=== PATIENT | female | born 1980 | race Caucasian/White ===

== ENCOUNTER 2024-04-15 20:00 | Emergency (ER) | payer OTHER ==
[~2024-04-15] VITALS: Ht 175.3 cm; Wt 67.6 kg
[~2024-04-15 20:00] MED LIST: PERCOCET 7.5-31 EACH PO; PRENATABS RX T1 EACH PO; PROTONIX40 MG PO; ZOFRAN ODT4 MG PO
[2024-04-15] MEDS ORDERED: SODIUM CHLORIDE 0.9% 500 ML IV PRN (20:15)
[2024-04-15] MEDS ORDERED: TRANEXAMIC ACID IN NACL,ISO-OS 1,000 MG/100 ML PIGGYBACK IV ONE (20:15)
[2024-04-15 20:40] LABS: BASOPHILS 0.3 % (0-2); EOSINOPHILS 2.2 % (0-6); HEMATOCRIT 28.4 % (35.0-50.0); HEMOGLOBIN 9.1 g/dL (12.0-18.0); LYMPHOCYTES 16.5 % (24-44); MCH 20.8 (27-36); MCHC 32.2 g/dl (30-36); MCV 64.6 fl (81-99); MONOCYTES 4.9 % (0-12); NEUTROPHILS 76.1 % (39-80); PLATELET COUNT 264 K/uL (140-440); RBC 4.39 M/ul (4.3-5.7); RDW 18.4 (10.5-15.0)
[2024-04-15] MEDS ORDERED: PROGESTERONE200 MG PO (20:47)
[2024-04-15 20:50] LABS: INR 1.01 (0.80-1.30); PROTIME 13.2 Sec (11.2-14.2)
[2024-04-15 20:56] LABS: ALBUMIN 3.6 g/dL (3.4-5.0); ALBUMIN/GLOBULIN RATIO 0.95 (1.1-2.4); ANION GAP 14.3 (7-21); BILIRUBIN, TOTAL 0.3 ng/dL (0.2-1.0); BUN/CREATININE RATIO 15.78 (6.0-28.6); CALCIUM 8.7 mg/dL (8.5-10.1); CREATININE, SERUM 0.95 mg/dL (0.55-1.02); POTASSIUM 3.3 mmol/L (3.5-5.1); PROTEIN, TOTAL 7.4 g/dL (6.4-8.2)
[2024-04-15 21:16] LABS: ABO A; ANTIBODY SCREEN NEGATIVE; RH POSITIVE
[2024-04-15] MEDS ORDERED: ESTROGENS ESTERIFIED PO ONE (21:30)
[2024-04-15] MEDS ORDERED: estradioL 1 MG TAB PO ONE (21:30)
[2024-04-15 22:12] LABS: BASOPHILS 0.6 % (0-2); EOSINOPHILS 1.4 % (0-6); HEMATOCRIT 24.8 % (35.0-50.0); HEMOGLOBIN 7.7 g/dL (12.0-18.0); LYMPHOCYTES 7.9 % (24-44); MCH 20.2 (27-36); MCV 65.1 fl (81-99); MONOCYTES 4.2 % (0-12); NEUTROPHILS 85.9 % (39-80); PLATELET COUNT 235 K/uL (140-440); RBC 3.81 M/ul (4.3-5.7); RDW 18.1 (10.5-15.0)
[2024-04-15] MEDS ORDERED: TRANEXAMIC ACI650 MG PO (22:28)
[2024-04-15] MEDS ORDERED: TRANEXAMIC ACID 1,000 MG/10 ML AMP PO ONE (22:30)
[2024-04-15] MEDS ORDERED: VITAMIN C500 M1 PO (22:33)
[2024-04-15] MEDS ORDERED: FERROUS SULFAT325 MG PO (22:33)
[2024-04-15 22:50] VITALS: BP 113/63
--- NOTE | 2024-04-16 22:48 | EKG ---
[facility] [address] [facility] [place] [address] Signed Normal sinus rhythm Normal ECG No previous ECGs available Confirmed by Annamarie Canchola MD () on 04/16/2024 10:48:41 PM Electronically Signed By: ANNAMARIE CANCHOLA MD 04/16/24 2248 PATIENT NAME: GARCIA SALDIVAR LEANDRO Electrocardiogram DATE OF : 80 PHYSICIAN: ANNAMARIE CANCHOLA MD REPORT #: [id number] REPORT IS CONFIDENTIAL AND NOT TO BE RELEASED WITHOUT AUTHORIZATION
== END 2024-04-15 22:50 | disposition home or self-care (01) ==
LOC: ED 20:00
PROVIDERS: Family Medicine
DX: N92.4 Excessive bleeding in the premenopausal period (principal); Z79.890 Hormone replacement therapy
CPT/HCPCS: 36415; 80053; 85025; 85060; 85610; 86850; 86900; 86901; 93005; 93010; 96365; 99284-25; J7040

== ENCOUNTER 2025-01-26 07:28 | Day surgery (SDC) | payer OTHER ==
[~2025-01-26] VITALS: Ht 175.3 cm; Wt 65.0 kg
[~2025-01-26 07:28] MED LIST changes: +FERROUS SULFAT325 MG PO; +IBLOOD GLUCOSE TEST STRIP 1 EA TEST VI PRN; +LACTATED RINGER'S 1,000 ML IV SCH; +LIDOCAINE HCL 1% 5 ML SDV INJ ONE; +PROGESTERONE200 MG PO; +TRANEXAMIC ACI650 MG PO; +VITAMIN C500 M1 PO
[2025-01-26 07:43] VITALS: BP 123/68
[2025-01-26] MEDS ORDERED: LIDOCAINE HCL 2% 5 ML SDV ONE (08:04)
[2025-01-26] MEDS ORDERED: KETOROLAC TROMETHAMINE 30 MG/ML VIAL ONE (08:07)
[2025-01-26] MEDS ORDERED: MIDAZOLAM HCL 2 MG/2 ML VIAL ONE (08:23)
[2025-01-26] MEDS ORDERED: fentaNYL citrate 100 MCG/2 ML VIAL ONE (08:23)
--- NOTE | 2025-01-26 09:43 | NUR ---
01/26/25 0943 Aylin Pelayo 0929- PT ARRIVES TO PACU. WAKES TO VOICE. DENIES PAIN OR NAUSEA AT THIS TIME. 0941- PT AWAKE OFF AND ON, CONTINUES TO DENIE PAIN.
[2025-01-26 09:50] VITALS: BP 102/58
--- NOTE | 2025-01-26 11:54 | OR ---
[address] [address] Signed DATE OF OPERATION: 01/26/2025 SURGEON: Lyn Mays MD PREOPERATIVE DIAGNOSIS: Menometrorrhagia. POSTOPERATIVE DIAGNOSIS: Menometrorrhagia. PROCEDURES: Diagnostic hysteroscopy, dilatation and curettage, NovaSure endometrial ablation. FINDINGS: Eight week size anteverted uterus, normal cervical canal, normal uterine cavity, normal tubal ostia. ANESTHESIA: MAC plus local. MANAGER RETAIL: None. IV FLUIDS: 600 mL crystalloid. ESTIMATED BLOOD LOSS: 5 mL. URINE OUTPUT: 30 mL clear urine . DRAINS: None. SPECIMENS: Endometrial curettings. COUNTS: Correct x2. Electronically Signed By: YLN MAYS MD 01/26/25 1154 PATIENT NAME: GARCIA SALDIVAR LEANDRO OPERATIVE REPORT DATE OF : 80 REPORT #: [id number] PHYSICIAN: LYN MAYS MD PCP: PRICILLA WORKMAN PA-C REPORT IS CONFIDENTIAL AND NOT TO BE RELEASED WITHOUT AUTHORIZATION [address] [address] Signed COMPLICATIONS: None apparent. TECHNIQUE IN DETAIL: With informed consent and negative hCG patient was taken to the operating room where she was given IV sedation. Her lower extremities were placed in mid lithotomy position using Yellofin stirrups. She underwent a brief exam under anesthesia and was then prepped and draped in sterile fashion. Time-out was then performed per protocol. We also placed her lower extremities in SCD pneumatic compression devices for DVT prophylaxis. A speculum was placed and the cervix was visualized. Paracervical block using 0.25% Marcaine with epinephrine was injected. 10 mL was injected circumferentially around the cervix. A single-tooth tenaculum was then placed on the anterior lip of the cervix. The uterus was sounded and found to be 8.5 cm. The cervical canal was then measured and found to be approximately 3.5 cm. The cervical canal was then gently dilated with ease to allow introduction of the hysteroscope. The hysteroscope was then inserted and there was direct visualization of the cervical canal and uterine cavity with the above-mentioned findings. Gentle curettage of the uterine cavity was then performed to obtain tissue for histopathologic evaluation. The NovaSure device was then removed from its packaging. The device was assessed and found to be in good working order. It was then inserted into the uterine cavity with ease and deployed. The length and width measurements were inserted into the computer. Cavity assessment was then performed. Cavity assessment was passed and ablation was begun. Total ablation time was 2 minutes. The device was then removed with ease. The tenaculum was removed from the anterior lip of the cervix and hemostasis was noted at both puncture sites. I and O catheterization of the patient's bladder was performed for the above mentioned about. DISPOSITION: The patient was taken to the recovery room in stable condition. MD MARU Ochoa/DELGADO /[id number] Electronically Signed By: LYN MAYS MD 01/26/25 1154 PATIENT NAME: GARCIA SALDIVAR OPERATIVE REPORT DATE OF : 80 REPORT #: [id number] PHYSICIAN: LYN MAYS MD PCP: PRICILLA WORKMAN PA-C REPORT IS CONFIDENTIAL AND NOT TO BE RELEASED WITHOUT AUTHORIZATION [address] [place] [address] Signed Copies: ~ Electronically Signed By: LYN MAYS MD 01/26/25 1154 PATIENT NAME: GARCIA SALDIVAR OPERATIVE REPORT DATE OF : 80 REPORT #: [id number] PHYSICIAN: LYN MAYS MD PCP: PRICILLA WORKMAN PA-C REPORT IS CONFIDENTIAL AND NOT TO BE RELEASED WITHOUT AUTHORIZATION
--- NOTE | 2025-01-31 11:54 | PATH ---
[facility] [address] [facility] [place], [place] [address] Signed SPECIMEN(S): A ENDOMETRIAL CURETTINGS SPECIMEN SOURCE: A. ENDOMETRIAL CURETTINGS CLINICAL HISTORY: Menorrhagia FINAL PATHOLOGIC DIAGNOSIS: Endometrial curettings: - Benign proliferative endometrium with focal polypoid features, negative for hyperplasia or atypia. - Benign endocervical epithelium. JVR MICROSCOPIC EXAMINATION: Histologic sections of all submitted blocks are examined by light microscopy. These findings, together with the gross examination, support the pathologic diagnosis. GROSS DESCRIPTION: The specimen, labeled and designated "Goad, endometrial curettings," is received in formalin and consists of multiple fragments of red-brown soft and mucoid tissue (2.8 x 1.6 x 0.3 cm in aggregate). The specimen is submitted entirely in cassette (A1). VB (under the direct supervision of a pathologist) The Gross Description was prepared using a voice recognition system. The report was reviewed for accuracy; however, sound-alike word errors, addition and/or deletions may occur. If there is any question about this report, please contact Client Services. ADDITIONAL NOTES: Immunohistochemical and/or in situ hybridization studies if performed in this case included appropriate positive controls that reacted as expected. This test was developed and its performance characteristics determined by [facility]. It has not been cleared or approved by the U.S. Food and Drug Administration. The FDA has determined that such clearance or approval is not necessary. This test is used for clinical purposes. It should not be regarded as investigational or for research. [facility] is certified under the Clinical Laboratory Improvement PATIENT NAME: GARCIA SALDIVAR PATHOLOGY DATE OF : 80 REPORT #: [id number] PHYSICIAN: CAMERON FARIA PCP: PRICILLA WORKMAN PA-C REPORT IS CONFIDENTIAL AND NOT TO BE RELEASED WITHOUT AUTHORIZATION [address] [place], [place] [address] Signed Amendments of 1988 (CLIA) as qualified to perform high complexity clinical laboratory testing. PERFORMING LABORATORY: Technical component was performed by [facility], [address] [place] [id number] (CLIA# [id number]). Professional interpretation was performed by [facility] [place] [facility] - [address] [place] [id number] (CLIA#: [id number]). Diagnostician: Neftali Fournier MD Pathologist Electronically Signed 01/31/2025 Copies: ~ PATIENT NAME: GARCIA SALDIVAR PATHOLOGY DATE OF : 80 REPORT #: [id number] PHYSICIAN: CAMERON FARIA PCP: PRICILLA WORKMAN PA-C REPORT IS CONFIDENTIAL AND NOT TO BE RELEASED WITHOUT AUTHORIZATION
== END 2025-01-26 10:37 | disposition home or self-care (01) ==
LOC: DS 07:28 → OPS 07:28 → DS 09:00 → OPS 10:37
PROVIDERS: ATTEND Obstetrics & Gynecology
PROC: 0UDB8ZX Extraction of Endometrium, Via Natural or Artificial Opening Endoscopic, Diagnostic (ICD-10-PCS; principal; 2025-01-26 09:00)
DX: N92.0 Excessive and frequent menstruation with regular cycle (principal); Z90.49 Acquired absence of other specified parts of digestive tract
CPT/HCPCS: 00952; J1885; J2003; J2250; J2405; J2704; J3010; J7121